=== PATIENT | female | born 1935 | race Caucasian/White ===

== ENCOUNTER 2024-12-22 08:15 | Inpatient (IN) | payer OTHER ==
[~2024-12-22] VITALS: Ht 163.8 cm; Wt 74.8 kg
[~2024-12-22 08:15] MED LIST: ASPIR 8181 MG PO; COZAAR100 MG PO; GLIPIZIDE5 MG PO; OSTERA TABLET1 EACH PO; SYNTHROID100 MCG PO; ZOCOR40 MG PO
[2024-12-22 09:15] VITALS: BP 139/78
[2024-12-22] MEDS ORDERED: TOPROL XL25 M1 PO (09:17)
[2024-12-22] MEDS ORDERED: JARDIANCE10 MG PO (09:17)
[2024-12-22 09:40] LABS: PH,URINE 6.5 (5.0-8.0); URINE APPEARANCE Clear; URINE BILIRRUBIN Negative (NEGATIVE); URINE BLOOD Moderate; URINE COLOR Yellow; URINE KETONE Negative (NEGATIVE); URINE LEUKOCYTE Negative; URINE NITRATE Negative; URINE PROTEIN Negative (NEGATIVE); URINE UROBILINOGEN 0.2 E.U./dl
[2024-12-22 09:40] LABS: BASO % 0.6 % (0.1-1.2); EOS # 0.18 (0.04-0.54); EOS % 2.6 % (0.7-7.0); HEMATOCRIT 38.1 % (34.1-44.9); HEMOGLOBIN 12.9 g/dL (11.2-15.7); LYMPH # 1.49 (1.18-3.74); LYMPH % 21.4 % (19.3-53.1); MEAN CORPUSCULAR HEMOGLOBIN 31.2 pg (25.6-32.2); MONO # 0.45 (0.24-0.82); MONO % 6.5 % (4.7-12.5); NEUT # 4.78 (1.56-6.13); NEUT % 68.5 % (34.0-71.1); PLATELET COUNT 250 K/uL (163-369); RED BLOOD COUNT 4.13 M/uL (3.93-5.22); RED CELL DISTRIBUTION WIDTH 13.3 % (11.6-14.4)
[2024-12-22 09:44] LABS: URINE BACTERIA 2691.3 uL (0.0-1933); URINE EPITHELIAL CELLS 25.4 uL (0.0-38.8); URINE RBC 13.2 uL (0.0-20.8); URINE WBC 49.7 uL (0.0-23.2)
[2024-12-22 10:05] LABS: INR 0.98; PARTIAL THROMBOPLASTIN TIME 33.1 SECONDS (22.0-34.0); PROTHROMBIN TIME 10.7 SECONDS (9.0-11.5)
[2024-12-22 10:16] LABS: URINE GLUCOSE 500 MG/DL (NEGATIVE)
[2024-12-22 10:47] LABS: ALBUMIN 3.9 gm/dL (3.4-5.0); BILIRUBIN TOTAL 0.58 mg/dL (0.3-1.2); CALCIUM 9.4 mg/dL (8.5-10.1); CREATININE SERUM 1.38 mg/dL (0.55-1.02); GLOBULINA 3.4 G/DL (2.4-3.5); POTASSIUM 4.37 mEq/L (3.5-5.1); TOTAL PROTEIN 7.3 gm/dL (6.4-8.2)
[2024-12-28] MEDS ORDERED: ONDANSETRON HCL 2 MG/ML VIAL IV PRN (10:00)
[2024-12-28] MEDS ORDERED: MORPHINE SULFATE 2 MG/ML CARTRIDGE IV SCH (12:00)
[2024-12-28] MEDS ORDERED: OxyCODONE HCL/APAP UD (PERCOCET) PO SCH (12:00)
[2024-12-28] MEDS ORDERED: MORPHINE SULFATE 4 MG/ML CARTRIDGE IV SCH (12:00)
[2024-12-28] MEDS ORDERED: LIDOCAINE HCL 1%/EPINEPHRINE 20ML VIAL IJ ONE (12:34)
[2024-12-28] MEDS ORDERED: VANCOMYCIN HCL 1,000 MG VIAL ONE ×2 (12:34→12:35)
[2024-12-28] MEDS ORDERED: KETOROLAC TROMETHAMINE 30 MG VIAL ONE (12:34)
[2024-12-28] MEDS ORDERED: BUPIVACAINE HCL/Mpf 0.5% 10ML VIAL ONE (12:34)
[2024-12-28] MEDS ORDERED: POVIDONE-IODINE 118 ML BOTT TOP ONE (12:34)
[2024-12-28] MEDS ORDERED: ISOPROPYL ALCOHOL 30 ML OUNCE TOP ONE (12:36)
[2024-12-28] MEDS ORDERED: TRANEXAMIC ACID 100MG/1ML (1000MG) AMPUL IV ONE (12:36)
[2024-12-28] MEDS ORDERED: DEXTROSE 50 % IN WATER 0.5 G/ML VIAL IV PRN (15:15)
[2024-12-28] MEDS ORDERED: ENALAPRILAT DIHYDRATE 1.25 MG/ML VIAL IV PRN (15:15)
[2024-12-28] MEDS ORDERED: INSULIN LISPRO 1,000 UNIT/10 ML UNITS SUBCUTANEO PRN (15:15)
[2024-12-28] MEDS ORDERED: SIMVASTATIN 40 MG TABLET PO SCH (17:00)
[2024-12-28] MEDS ORDERED: GABAPENTIN 100 MG CAPSULE PO SCH (21:00)
[2024-12-28] MEDS ORDERED: ORPHENADRINE CITRATE 100 MG TABLET PO SCH (21:00)
[2024-12-28] MEDS ORDERED: MORPHINE SULFATE 2 MG/ML CARTRIDGE IV ONE (21:15)
[2024-12-28] MEDS ORDERED: ONDANSETRON HCL 2 MG/ML VIAL IV ONE (22:00)
[2024-12-28] MEDS ORDERED: ONDANSETRON HCL 2 MG/ML VIAL ONE (22:25)
[2024-12-28] MEDS ORDERED: CEFAZOLIN SODIUM 1,000 MG VIAL ONE (23:25)
[2024-12-29] MEDS ORDERED: CEFAZOLIN SODIUM 1,000 MG VIAL IV SCH (01:00)
[2024-12-29 01:14] VITALS: BP 127/63; O2SAT 100
[2024-12-29] MEDS ORDERED: LEVOTHYROXINE SODIUM 100 MCG TABLET PO SCH (06:00)
[2024-12-29 06:22] LABS: BASO % 0.2 % (0.1-1.2); EOS # 0.02 (0.04-0.54); EOS % 0.2 % (0.7-7.0); HEMATOCRIT 35.4 % (34.1-44.9); HEMOGLOBIN 11.9 g/dL (11.2-15.7); LYMPH # 1.07 (1.18-3.74); LYMPH % 11.7 % (19.3-53.1); MEAN CORPUSCULAR HEMOGLOBIN 30.7 pg (25.6-32.2); MONO # 0.64 (0.24-0.82); NEUT # 7.35 (1.56-6.13); NEUT % 80.6 % (34.0-71.1); PLATELET COUNT 221 K/uL (163-369); RED BLOOD COUNT 3.87 M/uL (3.93-5.22); RED CELL DISTRIBUTION WIDTH 13.4 % (11.6-14.4)
[2024-12-29 08:04] VITALS: BP 112/69; O2SAT 97
[2024-12-29] MEDS ORDERED: RIVAROXABAN 10 MG TAB PO SCH (09:00)
[2024-12-29] MEDS ORDERED: METOPROLOL SUCCINATE 25 MG TAB.SR.24H PO SCH (09:00)
[2024-12-29] MEDS ORDERED: LOSARTAN POTASSIUM 100 MG TABLET PO SCH (09:00)
[2024-12-29] MEDS ORDERED: Cyanocobalamin/Mecobalamin 1 TAB.SL SL NR (11:45)
[2024-12-29] MEDS ORDERED: SOD FERRIC GLUC COMPLX/SUCROSE 62.5 MG/5 ML AMPUL IV SCH (12:00)
[2024-12-29 16:25] VITALS: BP 113/51; O2SAT 96
[2024-12-29] MEDS ORDERED: VITAMIN B COMPLEX 1 EACH PO SCH (17:00)
[2024-12-30 00:21] VITALS: BP 132/81; O2SAT 99
[2024-12-30] MEDS ORDERED: Cyanocobalamin/Mecobalamin 1 TAB.SL SL SCH (09:00)
[2024-12-30] MEDS ORDERED: NORFLEX100MG PO (12:05)
[2024-12-30] MEDS ORDERED: GABAPENTIN100 MG PO (12:05)
[2024-12-30] MEDS ORDERED: XARELTO10 MG PO (12:05)
[2024-12-30] MEDS ORDERED: OXYC1TAB9 PO (12:06)
[2024-12-30 14:40] VITALS: BP 149/66; O2SAT 94
[2024-12-30 16:47] VITALS: BP 138/72; O2SAT 95
== END 2024-12-30 22:19 | DRG 470 ==
LOC: SURH 12-28 07:00 → O/R 12-28 07:58 → SURH 12-28 08:15 → SURG 12-28 15:19
PROVIDERS: ADMIT Orthopaedic Surgery; ATTEND Orthopaedic Surgery
PROC: 0SRD0JZ Replacement of Left Knee Joint with Synthetic Substitute, Open Approach (ICD-10-PCS; principal; 2024-12-28 07:00)
DX: M17.12 Unilateral primary osteoarthritis, left knee (principal); D62 Acute posthemorrhagic anemia; M85.662 Other cyst of bone, left lower leg; E78.5 Hyperlipidemia, unspecified; I10 Essential (primary) hypertension